=== PATIENT | male | born 1985 | race African-American/Black ===

== ENCOUNTER 2016-09-13 07:15 | Emergency (ER) | payer OTHER | END 2016-09-13 07:50 | disposition home or self-care (01) | LOC: CED 07:15 | DX: M54.2 Cervicalgia (principal); F17.200 Nicotine dependence, unspecified, uncomplicated | CPT/HCPCS: 99282 ==

== ENCOUNTER 2016-10-21 22:34 | Emergency (ER) | payer OTHER ==
[2016-10-22 01:27] LABS: URINE SOURCE CLEAN CATCH
[2016-10-22 01:31] LABS: URINE APPEARANCE CLEAR; URINE BILIRUBIN NEG (NEG); URINE BLOOD NEG (NEG); URINE COLOR YELLOW; URINE GLUCOSE NEG (NEG); URINE KETONE NEG (NEG); URINE LEUKOCYTE ESTERASE NEG (NEG); URINE NITRATE NEG (NEG); URINE PH 5.5 (5-8); URINE PROTEIN TRACE (NEG); URINE SPECIFIC GRAVITY 1.032 (1.003-1.035)
[2016-10-22 01:34] LABS: CULTURE INDICATED? NO
[2016-10-24 01:51] LABS: CHLAMYDIA TRACH Not Detected (Not Detected); N GONOR Not Detected (Not Detected)
== END 2016-10-22 02:00 | disposition home or self-care (01) ==
LOC: CFTX 22:34 → CED 22:34 → CFTX 23:59
PROVIDERS: Nurse Practitioner
DX: Z20.2 Contact with and (suspected) exposure to infections with a predominantly sexual mode of transmission (principal)
CPT/HCPCS: 81003; 87491; 87591; 99283

== ENCOUNTER 2016-12-27 19:54 | Emergency (ER) | payer OTHER ==
[~2016-12-27] VITALS: Ht 177.8 cm; Wt 71.7 kg
== END 2016-12-27 23:25 | disposition home or self-care (01) ==
LOC: CFTX 19:54 → CED 19:54 → CFTX 22:08
DX: R51 Headache (principal)
CPT/HCPCS: 96372; 99284; J1885